=== PATIENT | female | born 1990 | race Caucasian/White ===

== ENCOUNTER 2016-06-24 06:32 | Emergency (ER) | payer MEDICAID ==
[2016-06-24] MEDS ORDERED: DEXAMETHASONE 10 MG/ML VIAL PO STA (07:50)
[2016-06-24] MEDS ORDERED: CHERRY SYRUP 10 ML UDC PO ONE (07:52)
[2016-06-24] MEDS ORDERED: DEXAMETHASONE 10 MG/ML VIAL ONE (07:52)
== END 2016-06-24 08:44 | disposition home or self-care (01) ==
DX: S33.5XXA Sprain of ligaments of lumbar spine, initial encounter (principal); X58.XXXA Exposure to other specified factors, initial encounter; Y93.9 Activity, unspecified; Y92.9 Unspecified place or not applicable; M54.5 Low back pain; F17.200 Nicotine dependence, unspecified, uncomplicated
CPT/HCPCS: 81003; 81025; 99283; A9270

== ENCOUNTER 2016-08-13 20:04 | Emergency (ER) | payer MEDICAID ==
[2016-08-13 20:11] VITALS: BP 153/100
--- NOTE | 2016-08-13 20:11 | ED Physician Documentation ---
PD HPI HEENT - Stated complaint Stated Complaint: TOOTH PX - Chief complaint Chief Complaint: Heent - History obtained from History obtained from: Patient - History of Present Illness Timing - onset: How many weeks ago (1) Timing - details: Gradual onset Pain level now: 8 Location: Tooth Associated symptoms: No: Fever Recently seen: Emergency Dept (last month ( ED) for unrelated c/o and 2 months ago in this ([facility]) ED for back pain) - Additional information Additional information: c/o 1 week dental pain isolated to left maxillary lateral incisor. She says she has been unable to see a dentist this week due to "a dental conference" (per patient) but has appointment Wednesday with Dr. Everett. Review of Systems Constitutional: denies: Fever Throat: reports: Dental pain / toothache PD PAST MEDICAL HISTORY - Past Medical History Cardiovascular: None Respiratory: None Neuro: Other Endocrine/Autoimmune: None GI: None SPECIAL EFFECTS ARTIST: None : None HEENT: None Psych: None Musculoskeletal: None Derm: None - Past Surgical History Past Surgical History: Yes HEENT: Tonsil/Adenoidectomy - Present Medications Home Medications: Ambulatory Orders Medication Instructions Recorded Confirmed Cyclobenzaprine [Flexeril] 10 mg PO TID PRN #20 tablet 06/24/16 HYDROcod/ACETAM 5/325 [[place] 5/325] 1 - 2 ea PO Q6H PRN #15 tablet 06/24/16 HYDROcod/ACETAM 5/325 [[place] 5/325] 1 - 2 ea PO Q6H PRN #15 tablet 08/13/16 Penicillin Vk 500 mg PO Q6H 5 Days 08/13/16 - Allergies Allergies/Adverse Reactions: Allergies Allergy/AdvReac Type Severity Reaction Status Date / Time No Known Drug Allergies Allergy Verified 06/24/16 06:40 - Social History Does the pt smoke?: Yes Smoking Status: Current every day smoker Does the pt drink ETOH?: No Does the pt have substance abuse?: No - Immunizations Immunizations are current?: Yes - POLST Patient has POLST: No PD ED PE NORMAL - Vitals Vital signs reviewed: Yes - General General: Alert and oriented X 3, No acute distress, Well developed/nourished - HEENT HEENT: Moist mucous membranes PD ED PE EXPANDED - HEENT HEENT: Dental TTP (left maxillary lateral incisor; no gingival erythema, discharge, swelling, or fluctuance) Results - Vitals Vitals: Vital Signs - 24 hr 08/13/16 20:09 Temperature 36.6 C Heart Rate 70 Respiratory 17 Rate Blood Pressure 153/100 H O2 Saturation 100 Oxygen O2 Source Room air PD MEDICAL DECISION MAKING - ED course Complexity details: reviewed old records, considered differential, d/w patient Departure - Departure Disposition: 01 Home, Self Care Clinical Impression: Pain, dental Condition: Good Instructions: ED Tooth Pain, ED Hypertension Poss Follow-Up: YARELI EVERETT [Physician No Access] - Prescriptions: HYDROcod/ACETAM 5/325 [[place] 5/325] 1 - 2 ea PO Q6H PRN #15 tablet PRN Reason: Pain Penicillin Vk 500 mg PO Q6H 5 Days Discharge Date/Time: 08/13/16 20:41
[2016-08-13] MEDS ORDERED: PENICILLIN VK 250 MG TABLET PO STA (20:25)
[2016-08-13] MEDS ORDERED: HYDROcod/ACETAM 5/325 MG TABLET PO STA (20:26)
[2016-08-13] MEDS ORDERED: HYDROcod/ACETAM 5/325 MG TABLET ONE (20:28)
[2016-08-13] MEDS ORDERED: PENICILLIN VK 250 MG TABLET PO ONE (20:29)
== END 2016-08-13 20:41 | disposition home or self-care (01) ==
LOC: ED 20:04
DX: K08.89 Other specified disorders of teeth and supporting structures (principal); F17.200 Nicotine dependence, unspecified, uncomplicated
CPT/HCPCS: 99283; A9270